=== PATIENT | female | born 1970 | race Caucasian/White ===

== ENCOUNTER → 2019-11-01 09:30 | Outpatient (CLI) | payer MEDICARE, MEDICAID, SELFPAY ==
[2019-10-11 10:36] VITALS: BMI 21.2
--- NOTE | 2019-11-01 09:32 | ECHOD_ITS ---
Reason For Study: EDEMA Procedure This was a 2D Doppler, Color Flow transthoracic echocardiogram. The study was technically limited. Limited views were obtained. Limited views available- scanned supine. Pt was very agitated/anxious during exam. Exam performed in department. Left Ventricle Normal LV size. Left ventricular systolic function is normal. The estimated ejection fraction is 60 %. Unable to assess diastolic dysfunction. No regional wall motion abnormalities noted. Right Ventricle Normal RV size. Normal systolic function. Atria Normal left atrium. Normal right atrium. No doppler evidence for ASD. Mitral Valve There is no mitral annular calcification. Normal mitral valve. Trivial mitral valve insufficiency. Tricuspid Valve Normal tricuspid valve. Trivial tricuspid valve insufficiency. Aortic Valve Trisinus/trileaflet aortic valve. Normal aortic valve. Pulmonic Valve The pulmonic valve is not well visualized. Great Vessels Normal sized aortic root. Pericardium/Pleural Trivial pericardial effusion. There are no echocardiographic indications of cardiac tamponade. MMode/2D Measurements & Calculations LVIDd: 3.2 cm IVSd: 0.47 cm Ao root diam: 2.9 cm LVIDs: 1.7 cm LVPWd: 0.47 cm RVDd: 1.9 cm FS: 46.7 % LA dimension(2D): 2.6 cm Interpretation Summary Limited views were obtained. The study was technically limited. Left ventricular systolic function is normal. The estimated ejection fraction is 60 %. Trivial mitral valve insufficiency. Trivial tricuspid valve insufficiency. Trivial pericardial effusion. There are no echocardiographic indications of cardiac tamponade. Unable to assess diastolic dysfunction. Ordering Physician: Serafin Guerrero Referring Physician: RAJAN SCHMID Performed By: Anna Stuart, RDCS, RVT
== END ==
PROVIDERS: PCP Family Medicine; Referring Provider Internal Medicine Cardiovascular Disease; Visit Provider Internal Medicine Cardiovascular Disease
DX: R60.0 Localized edema (principal); Q90.9 Down syndrome, unspecified
CPT/HCPCS: 93306